=== PATIENT | male | born 1965 | race Caucasian/White ===

== ENCOUNTER 2016-11-15 07:14 | Emergency (ER) | payer MEDICARE, MEDICAID ==
[2016-11-15 07:27] VITALS: BP 130/84
[2016-11-15] MEDS ORDERED: AMOXICILLIN TRIHYDRATE 250 MG CAPSULE PO ONE (08:25)
[2016-11-15] MEDS ORDERED: AMOXICILLIN TRIHYDRATE 250 MG CAPSULE ONE (08:28)
--- NOTE | 2016-11-15 08:31 | ERNOTE ---
Time Seen by Provider: 11/15/16 08:13 Stated Complaint: ALLERGIC REACTION Presenting Symptoms:: other Source: patient Exam Limitations: no limitations Immunizations: IMMUNIZATION HX Immunizations Up to Date Yes History of Influenza Vaccine No Hx Pneumococcal Vaccination No Allergies/Adverse Reactions: Allergies topiramate Allergy (Verified 11/15/16 07:56) phenytoin sodium [From Dilantin] Adverse Reaction (Mild, Verified 11/15/16 07:56 ) Headache phenytoin sodium extended [From Dilantin] Adverse Reaction (Mild, Verified 11/15 07:56) Headache Home Medications: HOME MEDICATIONS levETIRAcetam [Keppra] 1,000 mg PO BID 12/19/12 [Last Taken 01/10/14 20:00 2000] Lacosamide [Vimpat] 150 mg PO HS 01/10/14 [Last Taken 01/10/14 20:00 100mg] Famotidine [Pepcid AC] 20 mg PO BID PRN 02/04/14 [Last Taken Unknown] LORazepam [Ativan] 2 mg PO TID PRN 04/08/15 [Last Taken Unknown] Lacosamide [Vimpat] 150 mg PO DAILY 05/23/15 [Last Taken Unknown] Omeprazole [Prilosec] 20 mg PO TID 05/23/15 [Last Taken Unknown] Amoxicillin Trihydrate [Amoxil] 500 mg PO TID #30 cap 11/15/16 [Last Taken Unknown] - History of Present Ilness Narrative: Patient has had nasal congestion for about a month, not really runny, sore throat in the morning only after mouth breathing all night, no fever, no shortness of breath. He has tried over the counter decongestants and 'all kind of' nasal sprays with some relieve but then stopped as he read about the sided effects of fdc use. He has no history of allergic rhinitis. He has a history of seizure, gets them monthly, had one last week, still has fatigue and intermittent headaches since ( his usual sequel). He has a history of sleep apnea, but is not using a CPAP machine as he couldn't tolerate it. Review of Systems - Review of Systems Constitutional: Absent: recent illness, fever, chills EYE: Absent: vision changes ENT: Present: See HPI, ear pain, nose congestion, sore throat. Absent: nasal drainage Respiratory: Absent: shortness of breath, cough Cardiology: Absent: chest pain Gastrointestinal/Abdominal: Absent: nausea, vomiting, diarrhea, abdominal pain Genitourinary: Present: no symptoms reported Musculoskeletal: Present: no symptoms reported Skin: Absent: rash Neurological: Present: See HPI, headache, seizure - Patient's Past Medical History Patient History - Medical: Anxiety, Depression, GERD, Seizures Patient History - Cardiac/Respiratory: No pertinent hx Patient History - Cancer: No Hx of Cancer Patient History - Surgical Procedures: Other Patient History - Other: None - Social History Living Situations: home Abuse History: No History of abuse Psych History: Hx of Anxiety, Hx of Depression Smoking Status: Never smoker Alcohol Use: none Drug Use: none - Immunizations Immunizations Up to Date: Yes Hx Pneumococcal Vaccination: No History of Influenza Vaccine: No Physical Exam - Physical Exam General Appearance: Present: wd/wn, alert, no apparent distress Eye Exam: Normal inspection: bilateral Ears, Nose, Throat: Present: nasal congestion - with erythematous mucus membranes, pharyngeal erythema - mild, prominent uvula, other - TM dull bilateral. Absent: tonsillar exudate Neck: Present: normal inspection, nontender. Absent: lymphadenopathy (R), lymphadenopathy (L) Respiratory: Present: no respiratory distress, normal breath sounds, no accessory muscle use, lungs clear Cardiovascular/Chest: Present: regular rate, rhythm, no murmur Neurological Exam: Present: alert, oriented, normal mood/affect Skin Exam: Present: normal color, warm/dry ED Progress - Vital Signs Patient's Vital Signs:: I have reviewed the patient's vital signs. Vital Signs: Vital Signs 11/15/16 07:22 Temperature 36.4 C L Pulse Rate 62 Respiratory 18 Rate Blood Pressure 130/84 O2 Sat by Pulse 97 Oximetry - Progress/Reassessment Chief Complaint: Upper Respiratory Symptoms Departure - Departure Clinical Impression: Sinusitis, acute Qualifiers: Sinusitis location: unspecified location Recurrence: non-recurrent Qualified Code(s): J01.90 - Acute sinusitis, unspecified Disposition: Home self-care Condition: Good Instructions: Sinusitis, Adult, [id number] Additional Instructions: use over the counter flonase avoid using any more afrin or decongestant sprays Referrals: Andrews Goodwin DO [Primary Care Provider] - Prescriptions: Amoxicillin Trihydrate [Amoxil] 500 mg PO TID #30 cap
--- OUTSIDE RECORDS SUMMARY | 2016-11-15 08:31 | XMS REPORT | Continuity of Care Document ---
:1965 Author Organization ([facility]) Address [address] [place] [address] Phone [phone] Care Team Providers Name Role Phone Andrews Goodwin Primary Care Provider [phone] Source Comments This disclosure is being made pursuant to the Care Everywhere program, applicable federal and state laws, and may not contain all informaitonavailable regarding this patient. ([facility]) Active Allergies and Adverse Reactions Allergen Noted Date Severity Reactions Comments Other Agent 09/08/2012 Urticaria (Hives) [place] cheese Topiramate 09/08/2012 Respiratory Distress,OTHER "mouth felt scratchy and like there was hair in it" Current Medications Prescription Sig. Disp. Refills Start Date End Date Status levETIRAcetam (KEPPRA) Take 2 Tabs by 120 Tab 11 08/18/2011 Active 1,000 mg tablet mouth 2 times daily. Indications: Complex-Partial Epilepsy omeprazole 20 mg Take 20 mg by Active extended release mouth daily. capsule ibuprofen 200 mg tablet Take 200 mg by Active mouth every 6 hours as needed. ZIPRASIDONE 80 mg Take 80 mg by 04/09/2014 Active capsule mouth every evening. ROPINIROLE 2 mg tablet Take 1 Tab by 04/04/2014 Active mouth every evening. cetirizine 10 mg tablet Take 10 mg by Active mouth 2 times daily. LORazepam 2 mg tablet Take 2 mg by Active mouth 4 times daily as needed. lacosamide (VIMPAT) 150 Take 1 tablet 60 tablet 5 10/15/2016 Active mg tablet (150 mg total) by mouth 2 times daily. 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 every other day Last Filed Vital Signs Vital Sign Reading Time Taken Blood Pressure 134/84 04/03/2015 10:20 AM CDT Pulse 61 04/03/2015 10:20 AM CDT Temperature 36.2 C (97.2 F) 01/09/2014 12:13 PM CDT Respiratory Rate 20 01/09/2014 12:13 PM CDT Height 1.829 m (6' 0.01") 04/03/2015 10:20 AM CDT Weight 105.7 kg (233 lb 0.4 oz) 04/03/2015 10:20 AM CDT Body Mass Index 31.6 04/03/2015 10:20 AM CDT Oxygen Saturation 97% 01/09/2014 12:13 PM CDT Plan of Care Date Type Specialty Providers Description 02/09/2017 Wait List Neurology 02/16/2017 Appointment Neurology Fran Barnes MD [address] [place] [address] [phone] (Fax) Subj: Appointment Edyta Chacon PA-C [address] [place] [address] [phone] (Fax) Rescheduled Health Maintenance Due Date Last Done Comments Hepatitis B Vaccine (1 of 3 - Primary Series) 1965 Tdap Vaccine 1977 Lipid Disorder Screening 1984 MMR Vaccine 1984 Td Vaccine 1984 Physical Therapy Plan of Care 07/19/2014 04/20/2014 Influenza Vaccine: Seasonal (Season Ended) 2017 Results from Last 3 Months Not on file
== END 2016-11-15 08:34 | disposition home or self-care (01) ==
LOC: ER 07:14
DX: J01.90 Acute sinusitis, unspecified (principal); K21.9 Gastro-esophageal reflux disease without esophagitis; R56.9 Unspecified convulsions; F41.9 Anxiety disorder, unspecified

== ENCOUNTER 2016-11-25 15:03 | Emergency (ER) | payer MEDICARE, MEDICAID ==
[2016-11-25 15:10] VITALS: BP 173/95
[2016-11-25] MEDS ORDERED: LIDOCAINE HCL 20 ML VIAL ONE (15:35)
--- OUTSIDE RECORDS SUMMARY | 2016-11-25 15:48 | XMS REPORT | Continuity of Care Document ---
:1965 Author Organization [facility] ([facility]) Address [address] [place] [address] Phone [phone] Care Team Providers Name Role Phone Andrews Goodwin Primary Care Provider [phone] Source Comments This disclosure is being made pursuant to the Care Everywhere program, applicable federal and state laws, and may not contain all informaitonavailable regarding this patient.[facility] ([facility]) Active Allergies and Adverse Reactions Allergen Noted Date Severity Reactions Comments Other Agent 09/08/2012 Urticaria (Hives) [place] cheese Topiramate 09/08/2012 Respiratory Distress,OTHER "mouth felt [...] 02/16/2017 Appointment Neurology Fran Barnes MD [address] [place] [address] [phone] (Fax) Subj: Appointment Edyta Chacon PA-C [address] [place] [address] [phone] (Fax) Rescheduled Health Maintenance Due Date Last Done Comments Hepatitis B Vaccine (1 of 3 - Primary Series) 1965 Tdap Vaccine 1977 Lipid Disorder Screening 1984 MMR Vaccine 1984 Td Vaccine 1984 Physical Therapy Plan of Care 07/19/2014 04/20/2014 Influenza Vaccine: Seasonal (Season Ended) 2017 Results from Last 3 Months Not on file
[2016-11-25] MEDS ORDERED: DIPHTH,PERTUSS(ACELL),TET VAC 0.5 ML VIAL IM ONE ×3 (16:37→16:43)
[2016-11-25] MEDS ORDERED: HYDROcodone/ACETAMINOPHEN 1 EACH TABLET PO ONE (16:43)
[2016-11-25] MEDS ORDERED: HYDROcodone/ACETAMINOPHEN 1 EACH TABLET ONE (16:45)
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
== END 2016-11-25 16:52 | disposition home or self-care (01) ==
LOC: ER 15:03
PROC: 0JQK0ZZ Repair Left Hand Subcutaneous Tissue and Fascia, Open Approach (ICD-10-PCS; principal; 2016-11-25)
DX: S61.215A Laceration without foreign body of left ring finger without damage to nail, initial encounter (principal); Z23 Encounter for immunization; W31.89XA Contact with other specified machinery, initial encounter; Y93.89 Activity, other specified; Y92.9 Unspecified place or not applicable; F41.8 Other specified anxiety disorders; K21.9 Gastro-esophageal reflux disease without esophagitis

== ENCOUNTER 2017-01-07 00:36 | Emergency (ER) | payer MEDICARE, MEDICAID ==
[2017-01-07] MEDS ORDERED: ONDANSETRON 4 MG TAB.RAPDIS PO ONE (01:14)
[2017-01-07] MEDS ORDERED: ONDANSETRON 4 MG TAB.RAPDIS ONE (01:15)
--- NOTE | 2017-01-07 01:28 | ERNOTE ---
ENT HPI Presenting Symptoms: nosebleed Time Seen by Provider: 01/07/17 01:00 Source: patient, family Exam Limitations: no limitations - Immun/Allergies/Home Medications Immunizations: IMMUNIZATION HX Immunizations Up to Date Yes History of Influenza Vaccine Yes Hx Pneumococcal Vaccination Yes Allergies/Adverse Reactions: Allergies Allergy/AdvReac Type Severity Reaction Status Date / Time topiramate Allergy Verified 11/25/16 15:10 phenytoin sodium AdvReac Mild Headache Verified 11/25/16 15:10 [From Dilantin] phenytoin sodium extended AdvReac Mild Headache Verified 11/25/16 15:10 [From Dilantin] Home Medications: HOME MEDICATIONS levETIRAcetam [Keppra] 1,000 mg PO BID 12/19/12 [Last Taken 01/10/14 20:00 2000] Lacosamide [Vimpat] 150 mg PO HS 01/10/14 [Last Taken 01/10/14 20:00 100mg] LORazepam [Ativan] 2 mg PO TID PRN 04/08/15 [Last Taken Unknown] Lacosamide [Vimpat] 150 mg PO DAILY 05/23/15 [Last Taken Unknown] Omeprazole [Prilosec] 20 mg PO TID 05/23/15 [Last Taken Unknown] HYDROcodone/ACETAMINOPHEN [Hydrocodon-Acetaminophen 5-325] 1 each PO TID PRN # 20 tablet 11/25/16 [Last Taken Unknown] - History of Present Illness Narrative: Pt had tonsillectomy, adenoidectomy and septoplasty today. he had been "bleeding since" but stopped soon after arriving in the ED Severity: Present: mild, moderate ENT Location: Present: nose Prearrival Treatment: Present: other - ice packs to nose Modifying Factors - Worsens: Reports: activity, lying down Review of Systems - Review of Systems Constitutional: Present: weakness. Absent: recent illness, fever EYE: Absent: no symptoms reported ENT: Absent: no symptoms reported Respiratory: Absent: shortness of breath Cardiology: Absent: chest pain Gastrointestinal/Abdominal: Present: nausea. Absent: vomiting Genitourinary: Present: no symptoms reported Musculoskeletal: Present: no symptoms reported Skin: Present: no symptoms reported Neurological: Present: no symptoms reported Endocrine: Present: no symptoms reported Hematologic/Lymphatic: Present: no symptoms reported Psych: Present: no symptoms reported - Patient's Past Medical History Patient History - Medical: Anxiety, Depression, GERD, Seizures Patient History - Cardiac/Respiratory: No pertinent hx Patient History - Cancer: No Hx of Cancer Patient History - Surgical Procedures: T & A, Other, ENT Patient History - Other: None - Social History Living Situations: spouse Abuse History: No History of abuse Psych History: Hx of Anxiety, Hx of Depression Smoking Status: Never smoker Alcohol Use: none Drug Use: marijuana - Immunizations Immunizations Up to Date: Yes Hx Pneumococcal Vaccination: Yes History of Influenza Vaccine: Yes Physical Exam - Physical Exam General Appearance: Present: wd/wn, alert, mild distress Head Exam: Present: normal inspection Eye Exam: Normal inspection: bilateral Ears, Nose, Throat: Present: other - tonsillar pillars appeared normal for post operative condition. Some post pharynx clot but no active bleeding. Right nasal pasage was filled with clot without bleeding. Left nasal pasage approx 50 % filled with clot, no active bleeding and good air flow Neck: Present: normal inspection, nontender Respiratory: Present: no respiratory distress, no accessory muscle use ED Progress - Vital Signs Vital Signs: Vital Signs 01/07/17 00:39 Temperature 36.9 C Pulse Rate 78 Respiratory 18 Rate Blood Pressure 140/87 O2 Sat by Pulse 96 Oximetry - Progress/Reassessment Chief Complaint: Nose Pain/Injury Departure Clinical Impression: Post-operative hemorrhage Qualifiers: Surgical complication system/body Area: respiratory system Procedure type: respiratory system Qualified Code(s): J95.830 - Postprocedural hemorrhage of a respiratory system organ or structure following a respiratory system procedure - Departure Disposition: Home Follow Up Needed Condition: Good Additional Instructions: avoid quick movement or bending over. Follow instructions given by your ENT doctor. Call your ENT return to the ER if you cannot get the bleeding to stop Referrals: Andrews Goodwin DO [Primary Care Provider] -
[2017-01-07 01:50] VITALS: BP 134/72
== END 2017-01-07 01:59 | disposition home or self-care (01) ==
LOC: ER 00:36
DX: J95.830 Postprocedural hemorrhage of a respiratory system organ or structure following a respiratory system procedure (principal)